=== PATIENT | female | born 1985 | race Caucasian/White ===

== ENCOUNTER 2017-07-18 19:42 | Emergency (ER) | payer MEDICAID ==
[~2017-07-18] VITALS: Ht 175.3 cm; Wt 72.6 kg
[~2017-07-18 19:42] MED LIST: FERR325T28 PO; LANS30CA54 PO; MAG30ORA PO; METO-295 PO; MULT-24 PO; OMEP40CA37 PO; ONDA4TAB8 PO
[2017-07-18] MEDS ORDERED: PHENAZOPYRIDINE HCL 100 MG TABLET PO ONE (20:30)
[2017-07-18] MEDS ORDERED: PHENAZOPYRIDINE HCL 100 MG TABLET ONE (20:52)
[2017-07-18 20:58] LABS: *BILIRUBIN,URIN NEGATIVE (NEGATIVE); *BLOOD, URINE Trace-intact (NEGATIVE); *CLARITY,URINE CLEAR (CLEAR); *COLOR,URINE YELLOW (YELLOW); *KETONES,URINE NEGATIVE (NEGATIVE); *PROTEIN,URINE NEGATIVE (NEGATIVE); *UROBILINOGEN,URINE 0.2 E.U./dl (NORMAL); LEUKOCYTE ESTERASE ,URINE NEGATIVE (NEGATIVE); NITRITE, URINE NEGATIVE (NEGATIVE); PH,URINE 5.5 (5.0-8.0); UGLUCOSE NEGATIVE (NEGATIVE)
[2017-07-18 20:59] LABS: *URINE HCG, QUAL NEGATIVE (NEGATIVE)
[2017-07-18] MEDS ORDERED: IV NORMAL SALINE 1000 ML BAG IV ONE (21:00)
[2017-07-18] MEDS ORDERED: ONDANSETRON 4 MG/2 ML VIAL IV ONE (21:00)
[2017-07-18 21:04] LABS: RBC,URINE 0-3 /HPF (0-3); SQUAMOUS EPITHELIAL CELL,UR FEW /HPF (NONE SEEN); WBC,URINE 0-3 /HPF (0-3)
[2017-07-18] MEDS ORDERED: ONDANSETRON 4 MG/2 ML VIAL ONE (21:23)
--- NOTE | 2017-07-18 21:23 | NUR ---
AFTER RECEIVING IV ZOFRAN AND STARTING NS INFUSION, PATIENT ASKED HOW LONG IT WOULD TAKE. EXPLAINED TO PATIENT IV INFUSION COULD TAKE UP TO 1 HOUR. PATIENT STATED THAT SHE DOES NOT WANT TO WAIT FOR IV INFUSION TO BE COMPLETED. ERMD AWARE.
--- NOTE | 2017-07-18 21:26 | NUR ---
PATIENT STATES NAUSEA IS BETTER NOW, ALSO PATIENT REFUSED TO TAKE PYRIDIUM.
--- NOTE | 2017-07-18 21:27 | NUR ---
Patient discharged to home in stable conditon. Written and verbal after care instructions given. Patient verbalizes understanding of instructions. PATIENT LEFT WITH STABLE GAIT.
[2017-07-18 21:29] VITALS: BP 109/89
[2017-07-18] MEDS ORDERED: ACETAMINOPHEN ES 500 MG TABLET PO ONE (21:30)
== END 2017-07-18 21:30 | disposition home or self-care (01) ==
LOC: ER 19:42
DX: K86.1 Other chronic pancreatitis (principal); K85.90 Acute pancreatitis without necrosis or infection, unspecified; F43.10 Post-traumatic stress disorder, unspecified; Z88.6 Allergy status to analgesic agent
CPT/HCPCS: 84703; A4663; J2405